=== PATIENT | male | born 1960 | race Caucasian/White ===

== ENCOUNTER → 2018-08-03 | Outpatient (CLI) | payer OTHER | LOC: FIMAGING 09:04 | PROVIDERS: ATTEND Urology | DX: R33.9 Retention of urine, unspecified (principal) ==

== ENCOUNTER 2018-09-17 11:53 | Observation (INO) | payer OTHER ==
[2018-09-17] MEDS ORDERED: ceFAZolin 3 GM in D5W 100 ML IV ONE (13:56)
[2018-09-17] MEDS ORDERED: OPIUM/BELLADONNA ALKALO SUPP PR PRN (13:56)
[2018-09-17] MEDS ORDERED: LR 1,000 ML IV ONE (13:57)
[2018-09-17] MEDS ORDERED: LIDOCAINE 2% JELLY 20 ML (UROJECT) ONE (13:59)
[2018-09-17] MEDS ORDERED: OPIUM/BELLADONNA ALKALO SUPP PR ONE (14:00)
[2018-09-17] MEDS ORDERED: ceFAZolin 2 GM/DEXTROSE 100 ML IV ONE (14:30)
--- NOTE | 2018-09-17 15:27 | PDANEPAE ---
ANE History of Present Illness BPH here for TURP ANE Past Medical History - Cardiovascular History Hx Hypertension: No Hx Arrhythmias: No Hx Chest Pain: No Hx Coronary Artery / Peripheral Vascular Disease: No Hx CHF / Valvular Disease: No Hx Palpitations: No - Pulmonary History Hx COPD: No Hx Asthma/Reactive Airway Disease: No Hx Recent Upper Respiratory Infection: No Hx Oxygen in Use at Home: No Hx Sleep Apnea: No Sleep Apnea Screening Result - Last Documented: Negative - Neurologic History Hx Cerebrovascular Accident: No Hx Seizures: No Hx Dementia: No - Endocrine History Hx Diabetes: No - Renal History Hx Renal Disorders: Yes Renal History Comment: BPH. urinary retention - Liver History Hx Hepatic Disorders: No - Neurological & Psychiatric Hx Hx Neurological and Psychiatric Disorders: No - Cancer History Hx Cancer: No - Congenital Disorder History Hx Congenital Disorders: No - GI History Hx Gastrointestinal Disorders: No - Other Health History Other Health History: wears glasses/contacts. hx lyme disease 20 years ago - Chronic Pain History Chronic Pain: No - Surgical History Prior Surgeries: colonoscopies. right knee scope. vasectomy. tonsillectomy. wisdom teeth extraction ANE Review of Systems Review of Systems: - Exercise capacity METS (RN): 6 METS ANE Patient History - Allergies Allergies/Adverse Reactions: No Known Allergies Allergy (Verified 09/08/18 10:47) - Home Medications Home medications: home medication list seen and reviewed Home Medications: Glucosamine Sulfate [Glucosamine Sulfate 500 MG (*)] 500 mg PO DAILY 09/08/18 [ Last Taken 09/14/18] Herbals/Supplements -Info Only 1 ea PO DAILY 09/08/18 [Last Taken 09/14/18] Multivitamins [Multivitamin (*)] 1 each PO DAILY 09/08/18 [Last Taken 09/14/18] [place]-3 Fatty Acids [Fish Oil 1000 mg (*)] 1,000 mg PO DAILY 09/08/18 [Last Taken 09/14/18] Tamsulosin HCl [Flomax 0.4 MG (*)] 0.4 mg PO BID 09/08/18 [Last Taken 09/16/18] - NPO status NPO Status: no food or drink >8 hours NPO Since - Liquids (Date): 09/17/18 NPO Since - Liquids (Time): 11:00 NPO Since - Solids (Date): 09/16/18 NPO Since - Solids (Time): 21:00 - Smoking Hx Smoking Status: Never smoked - Family Anes Hx Family Hx Anesthesia Complications: none ANE Labs/Vital Signs - Vital Signs Blood Pressure: 124/82 Heart Rate: 49 Respiratory Rate: 14 O2 Sat (%): 97 Height: 177.8 cm Weight: 72.575 kg ANE Physical Exam - Airway Neck exam: FROM Mallampati Score: Class 2 Mouth exam: normal dental/mouth exam - Pulmonary Pulmonary: no respiratory distress, clear to auscultation - Cardiovascular Cardiovascular: regular rate and rhythym, no murmur, rub, or gallop - ASA Status ASA Status: II ANE Anesthesia Plan Anesthesia Plan: GA w LMA
--- NOTE | 2018-09-17 15:30 | PDHPUP ---
History & Physical Update H&P update statement: This history and physical update is based on an assessment of the patient which was completed after admission or registration (within 24 hours), but prior to the surgery/procedure. H&P update: H&P reviewed & patient examined, no change in patient's condition since H&P completed
[2018-09-17] MEDS ORDERED: PROPOFOL 200 MG/20 ML VIAL ONE (15:36)
[2018-09-17] MEDS ORDERED: fentaNYL 100 MCG/2 ML INJ ONE (15:36)
[2018-09-17] MEDS ORDERED: MIDAZOLAM 2 MG/2 ML VIAL IVP ONE (15:37)
[2018-09-17] MEDS ORDERED: LIDOCAINE 2% 100 MG/5 ML SYR ONE (15:38)
[2018-09-17] MEDS ORDERED: PROPOFOL/EMULSION 500 MG/50 ML BOTTLE IV ONE (17:12)
[2018-09-17] MEDS ORDERED: fentaNYL 100 MCG/2 ML INJ IVP PRN (17:31)
[2018-09-17] MEDS ORDERED: DIAZEPAM 5 MG/ML 1 ML SYR IVP PRN (17:31)
[2018-09-17] MEDS ORDERED: ONDANSETRON 4 MG/2 ML VIAL IVP PRN ×2 (17:31→17:35)
[2018-09-17] MEDS ORDERED: PROMETHAZINE HCL 25 MG/ML INJ IVP PRN (17:31)
[2018-09-17] MEDS ORDERED: ACETAMINOPHEN 500 MG TAB PO PRN (17:31)
[2018-09-17] MEDS ORDERED: HYDROCODONE/APAP 5/325 TAB PO PRN (17:31)
[2018-09-17] MEDS ORDERED: NALOXONE HCL 0.4 MG/ML INJ IVP PRN (17:31)
[2018-09-17] MEDS ORDERED: oxyCODONE IR 5 MG TAB PO PRN (17:31)
--- NOTE | 2018-09-17 17:34 | POSTANESTH ---
Post Anesthetic Evaluation Cardiovascular Status: Normal, Stable, Similar to Pre-Op Cond Respiratory Status: Normal, Stable, Similar to Pre-op Cond. Level of Consciousness/Mental Status: Can Participate in Eval, Alert and Oriented Pain Control: Adequate, Prn Tx Ordered Nausea/Vomiting Control: Adequate, Prn Tx Ordered Complications Possibly Related to Anesthesia: None Noted
--- NOTE | 2018-09-17 17:35 | POSTOPPROG ---
Post Op Note Date of Operation: 09/17/18 Surgeon: Jasmine Beyer Anesthesia: GET(General Endotracheal) Pre-op Diagnosis: BPH w LUTs Post-op Diagnosis: same Indication: BPH w LUTs Procedure: cystoscopy, TURP in saline Findings: trilobar hypertrophy Inf/Abcess present in the surg proc area at time of surgery?: No EBL: 50-100 Complications: none pt tolerated procedure well Drains: Other ([place]) Specimen(s): prostate chips
[2018-09-17] MEDS: D5W LR 1,000 ML IV SCH (21:24)
[2018-09-17] MEDS: TAMSULOSIN HCL 0.4 MG CAP PO SCH (21:25)
[2018-09-17] MEDS: HYDROCODONE/APAP 5/325 TAB PO PRN (21:54)
[2018-09-18] MEDS: D5W LR 1,000 ML IV SCH (05:23)
[2018-09-18] MEDS: HYDROCODONE/APAP 5/325 TAB PO PRN (08:16)
[2018-09-18] MEDS: TAMSULOSIN HCL 0.4 MG CAP PO SCH (08:16)
--- NOTE | 2018-09-18 10:24 | SOAPPROG ---
SOAP Progress Note Assessment/Plan: Assessment: Postop TURP, doing well Plan: Voiding trial later today. Call MD mendiola updates. Home later today. Activity restrictions discussed. 09/18/18 10:22 Subjective: Post op TURP Has not ambulated. Corey diet Very little pain. Feels good. Objective: Vital Signs Temp Pulse Resp BP Pulse Ox 36.4 C 51 L 16 126/77 H 95 09/18/18 08:00 09/18/18 08:00 09/18/18 08:00 09/18/18 08:00 09/18/18 03:51 09/17/18 09/18/18 09/19/18 05:59 05:59 05:59 Intake Total 2304 600 Output Total 1000 Balance 1304 600 Gen NAD A*O CV regular Lungs Normal effort Abd soft Ext warm CBI off, urine light yellow/pink in tube. Manually irrigated and NO clots. - Pending Discharge Pending Discharge Within 24 Hours: Yes Pending Discharge Date: 09/19/18 Pending Discharge Time: 11:00 ICD10 Worksheet Patient Problems: Problems Problem Status Onset BPH loc w urin obs/LUTS Acute - ICD10 Problem Qualifiers (1) BPH loc w urin obs/LUTS
[2018-09-18] MEDS ORDERED: SENNOSIDES/DOCUSATE SODIUM TAB PO SCH (10:30)
[2018-09-18 12:16] VITALS: BP 112/70
--- NOTE | 2018-09-18 12:52 | ASMTLACE ---
GENO Length of stay for Answers: 1 day current admission Acuity / Level of Answers: No Care: Did the patient have an inpatient admission? # of Emergency department Answers: 0 visits in the last 6 months Score: 1 Date Signed: 09/18/2018 12:51 PM Electronically Signed By:Savanah Morales RN
--- NOTE | 2018-09-18 13:17 | GOP ---
DATE OF OPERATION: 09/17/2018 SURGEON: Jasmine Beyer MD ANESTHESIA: General. ANESTHESIOLOGIST: Dr. Mccain. PREOPERATIVE DIAGNOSIS: Benign prostatic hypertrophy with lower urinary tract symptoms and urinary retention. POSTOPERATIVE DIAGNOSIS: Benign prostatic hypertrophy with lower urinary tract symptoms and urinary retention. PROCEDURE PERFORMED: Cystoscopy and transurethral resection of prostate in saline. FINDINGS: SPECIMENS: Prostate chips. ESTIMATED BLOOD LOSS: 100 mL. INDICATIONS: The patient presented to my office with bothersome lower urinary tract symptoms and significant urinary retention. He underwent clinic cystoscopy showing a severely trabeculated bladder and a very large obstructing prostate with trilobar hypertrophy. Recommended management was a TURP to help preserve bladder function and decrease retention. He understood the rationale and risks for the procedure. The risks included bleeding; infection; pain; injury to the urethra, bladder, or ureters; need for subsequent procedures; small risk of urinary incontinence; small risk of urethral stricture or bladder neck contracture; and a larger risk of retrograde ejaculation. He understood these risks and agreed to proceed. DESCRIPTION OF PROCEDURE: He was taken to the operating room, placed on the operating table in a supine position. General anesthesia induced without complication. Time-out performed and core measures satisfied including placement of a Mary Jo Hugger, SCDs, and administration of 2 g Ancef antibiotics. He was brought to the end of the table, placed in a dorsal lithotomy position. All pressure points padded. Genitalia draped and prepped in the standard surgical fashion with Betadine. The TURIs resectoscope with visual obturator was assembled, and I did [place] dilate the distal urethral meatus to make sure that the meatal opening was large enough to accommodate the resectoscope and then advanced the resectoscope with visual obturator into the urethra, past the prostate and into the bladder. The prostate was confirmed to be obstructing with trilobar hypertrophy. The obturator was exchanged out for the resectoscope sheath and the loop was assembled and the resectoscope was inserted into the sheath. I identified the right and left ureteral orifices. I started my resection at the bladder neck, well away from the ureteral orifice at the 5 and 7 o'clock positions and continued resection at the 5 and 7 o'clock positions back to the veru. I then removed the posterior prostate tissue, the intervening tissue between the 5 and 7, from the bladder neck back to the veru. Hemostasis was maintained throughout with electrocautery and then I resected from the bladder neck back to the level of the veru, the right lateral lobe, the left lateral lobe, and anterior tissue. I kept the ureteral orifices in mind and their location as well as the veru in mind throughout the entire resection to make sure not violate any of these important structures. At the end of the resection, I used the [employer] evacuator several times to remove prostate chips. I resected all of the tissue that was obstructing when I was sitting at the veru. At the end of the resection, he was wide open and I looked straight into the bladder. The right and left ureteral orifices were verified to be attached. The resection was verified it not had gone more distal than the veru, and I felt very good about this resection. He was wide open. All the prostate chips had been removed from the bladder. Hemostasis was maintained throughout and was excellent at the end of the procedure. I then removed the TURIs resectoscope and then placed a 24-Yi 3-way catheter after inserting lidocaine into the urethra and manually irrigated. The irrigant was clear. There were no other prostate chips irrigated out. The balloon was inflated with sterile water, and the CBI was connected and was running clear. A belladonna was placed in the rectum, and at this point, I considered the procedure complete. He was awoken from anesthesia and transferred to PACU in good condition. He will be admitted overnight on continuous bladder irrigation, and in the morning we will decide about Powell removal. COMPLICATIONS: None. The patient tolerated the procedure well. /[id number]/MODL MTDD
[2018-09-18] MEDS ORDERED: BISACODYL 10 MG SUPP PR ONE (15:00)
== END 2018-09-18 17:00 | disposition home or self-care (01) ==
LOC: F1N 13:46
PROVIDERS: ADMIT Urology; ATTEND Urology
PROC: 0VB08ZZ Excision of Prostate, Via Natural or Artificial Opening Endoscopic (ICD-10-PCS; principal; 2018-09-17 16:30)
DX: N40.1 Benign prostatic hyperplasia with lower urinary tract symptoms (principal); R33.8 Other retention of urine; N13.8 Other obstructive and reflux uropathy
CPT/HCPCS: 52601; G0378; J0690; J2001; J2250; J2704; J3010